=== PATIENT | male | born 1995 | race Caucasian/White ===

== ENCOUNTER 2017-08-16 18:27 | Inpatient (IN) | payer BC ==
[~2017-08-16] VITALS: Ht 165.1 cm; Wt 57.6 kg
[2017-08-16 18:32] VITALS: Ht 165.1 cm; Wt 57.6 kg
[2017-08-16 19:20] LABS: BASOPHIL % 0.4 % (0-2); RED CELL DISTRIBUTION WIDTH 13.9 % (11.5-14.5)
[2017-08-16 19:23] LABS: PLATELET COUNT 444 x10^3mcL (130-400)
[2017-08-16 20:05] LABS: CALCIUM 8.5 mg/dL (8.5-10.1); CARBON DIOXIDE 27.6 mmol/L (21-32); CHLORIDE SERUM 102 mmol/L (98-107); CREATININE SERUM 0.9 mg/dL (0.7-1.3); GFR1 > 60 mL/min; GLUCOSE SERUM 82 mg/dL (74-106); POTASSIUM SERUM 3.3 mmol/L (3.5-5.1); SODIUM SERUM 140 mmol/L (136-145)
[2017-08-16 20:10] LABS: ALKALINE PHOSPHATASE 99 U/L (46-116); ALT/SGPT 19 U/L (16-63); AST/SGOT 18 U/L (15-37); BILIRUBIN TOTAL 0.24 mg/dL (0.20-1.00); TOTAL PROTEIN, SERUM 6.9 g/dL (6.4-8.2)
[2017-08-16] MEDS ORDERED: LEXAPRO20 MG PO (21:19)
[2017-08-16 21:36] LABS: MAGNESIUM 1.9 mg/dL (1.8-2.4); PHOSPHOROUS 3.5 mg/dL (2.5-4.9)
[2017-08-16 21:38] LABS: CHOLESTEROL/HDL RATIO 3.6
[2017-08-16 21:43] LABS: T3 TOTAL 1.35 ng/mL
[2017-08-16 21:58] LABS: FREE T4 1.05 ng/dL (0.76-1.46); FREE THYROXINE INDEX 2.9 ug/dL (1.4-4.5); T4(THYROXINE) 8.3 ug/dL (4.7-13.3)
[2017-08-16 22:08] VITALS: BP 131/77
[2017-08-16 23:28] LABS: microscopic required? NO
[2017-08-16 23:34] LABS: UA SPECIFIC GRAVITY <=1.005 (1.005-1.035); urine erythrocyte NEGATIVE (NEGATIVE)
[2017-08-16 23:44] LABS: AMPHETAMINE QUAL UR NONE DETECTED
[2017-08-17 04:26] VITALS: BP 131/77
[2017-08-17 04:40] VITALS: BP 102/63
[2017-08-17 06:03] LABS: CALCIUM 8.5 mg/dL (8.5-10.1); CARBON DIOXIDE 26.4 mmol/L (21-32); CHLORIDE SERUM 107 mmol/L (98-107); CREATININE SERUM 0.9 mg/dL (0.7-1.3); GFR1 > 60 mL/min; GLUCOSE SERUM 100 mg/dL (74-106); POTASSIUM SERUM 3.6 mmol/L (3.5-5.1); SODIUM SERUM 142 mmol/L (136-145)
[2017-08-17 06:07] LABS: IRON 43 ug/dL (65-170)
[2017-08-17 06:08] LABS: TOTAL IRON BINDING CAPACITY 164 ug/dL (250-450)
[2017-08-17 06:17] LABS: BASOPHIL % 0.5 % (0-2)
[2017-08-17 06:20] LABS: RED BLOOD CELLS 4.51 M/mm3 (4.52-5.90); RED CELL DISTRIBUTION WIDTH 14.1 % (11.5-14.5)
[2017-08-17 06:24] LABS: PLATELET COUNT 428 x10^3mcL (130-400)
[2017-08-17 08:52] VITALS: BP 122/66
[2017-08-17 12:26] VITALS: BP 116/88
== END 2017-08-17 16:39 | disposition left against medical advice (07) | DRG 917 ==
LOC: ED 18:27 → DU 20:46
PROVIDERS: Emergency Medicine; Student in an Organized Health Care Education/Training Program
DX: T40.1X1A Poisoning by heroin, accidental (unintentional), initial encounter (principal); G92 Toxic encephalopathy; N17.0 Acute kidney failure with tubular necrosis; E44.0 Moderate protein-calorie malnutrition; F33.2 Major depressive disorder, recurrent severe without psychotic features; F11.20 Opioid dependence, uncomplicated; Z68.1 Body mass index [BMI] 19.9 or less, adult; Y92.89 Other specified places as the place of occurrence of the external cause; E87.6 Hypokalemia; J98.01 Acute bronchospasm; D50.9 Iron deficiency anemia, unspecified
CPT/HCPCS: 83880; 84439; J2060; J2310; J7030; J7040; J7613; J7620; J7644; Q0092